=== PATIENT | female | born 1990 | race Caucasian/White ===

== ENCOUNTER 2017-09-12 11:10 | Emergency (ER) | payer MEDICAID, SELFPAY ==
[2017-09-12 11:11] VITALS: BP 166/108; PULSE 114; RESP 16; TEMP 36.7; O2SAT 97; BMI 58.2
--- NOTE | 2017-09-12 11:24 | RAD_ITS ---
STUDY: X-RAY CHEST REASON FOR EXAM: Female, 27 years old. Cough. TECHNIQUE: PA and lateral views of the chest. COMPARISON: None. FINDINGS: The lungs are expanded. There is perihilar interstitial thickening and prominence of the central bronchovascular markings. There is no demonstrated pleural abnormality. Normal size heart. Normal mediastinum and heath. There is prominence of the pulmonary hilar arteries with peripheral pulmonary vascular congestion. Normal visualized aortic arch and descending thoracic aorta. Normal visualized thoracic spine. Normal visualized ribs, clavicles, and shoulders. There is no demonstrated abnormality of the visualized soft tissue structures of the upper abdomen. RAD/Chest PA and Lateral IMPRESSION: 1. Mild pulmonary congestion. 2. Differential considerations include acute exacerbation of reactive airway disease, viral infection or mycoplasma pneumonitis. Electronically Signed: aKtelin Barron MD at 12:01 EST , Service support ,
[2017-09-12] MEDS: Naproxen 500 MG Tablet PO (11:37)
--- NOTE | 2017-09-12 12:07 | ED.VISSUMM ---
- ER Visit Summary Date of Service: 09/12/17 Chief Complaint: Head and chest congestion History of Present Illness: The patient is a 27 F who woke on the second with head and chest congestion. She has cough without sputum. She states she feels hot and cold but has not measured a fever. She complains of generalized body aches. She states her boss told her to come in to be evaluated. Physical Examination: Blood pressure is 166/108, temperature 98.0, heart rate 114, respiratory rate 16, pulse ox 97% on room air. Patient is an obese female sitting upright in bed. She is in no acute distress. She appears ill but not toxic. Head neck examination reveals left TM to be erythematous, right TM to be clear. Posterior pharynx examination is unremarkable. Heart is regular rate and rhythm. Lung sounds are grossly clear. Abdomen is soft, obese, nontender. No skin lesions or rash are noted. Test Results: Two-view chest x-ray reveals mild pulmonary congestion. Emergency Department Course and Treatment: Patient was treated with naproxen here. Should be covered with Augmentin for her ear. I did explain to her that her symptoms are likely all viral in nature and simply need to run their course. She will be written for naproxen at home. She is encouraged to continue taking Mucinex. She is written off work today and tomorrow. Treatment Plan: [] Disposition: Discharge Impression: 1. Viral syndrome 2. Left otitis media This note was generated with [employer] dictation software. It may contain incorrect words, spelling, and punctuation that were not noted in review of the chart prior to signing ED Disposition - Plan for ED Patient: Chief Complaint: Cold Sx Referrals: Monica Caba NP-C [Primary Care Provider] -
--- NOTE | 2017-09-12 12:09 | ED.DEP ---
ED Disposition - Plan for ED Patient: Disposition: Home or Assisted Living Chief Complaint: Cold Sx Instructions: ED Viral Syndrome, ED Otitis Media Acute Adult Prescriptions: Amox/Clavulanate Tablet [Augmentin Tablet] 875 mg PO Q12H #20 tablet Naproxen [Naprosyn] 500 mg PO BID PRN #20 tablet Referrals: Monica Caba, GALVANIZER ZINC-C [Primary Care Provider] - 1 Week if not improving
[2017-09-12 12:21] VITALS: BP 135/80; PULSE 101; RESP 14; O2SAT 98
[2017-09-12] MEDS: Amox/Clavulanate 875 MG Tablet PO (12:22)
== END 2017-09-12 12:22 | disposition home or self-care (01) ==
PROVIDERS: Emergency Provider Emergency Medicine; Family Provider Nurse Practitioner Family; PCP Nurse Practitioner Family
DX: B34.9 Viral infection, unspecified (principal); H66.92 Otitis media, unspecified, left ear; E66.9 Obesity, unspecified; I10 Essential (primary) hypertension; Z72.0 Tobacco use
CPT/HCPCS: 71046; 99283

== ENCOUNTER → 2017-09-17 09:14 | Outpatient (CLI) | payer MEDICAID, SELFPAY ==
[2017-09-12 11:11] VITALS: BMI 58.2
[2017-09-12 12:21] VITALS: BP 135/80
[2017-09-17 12:17] LABS: AST(SGOT) 17 U/L (15-37); Alanine Aminotransfer ALT/SGPT 27 U/L (13-56); Albumin, Serum 3.4 g/dL (3.2-5.0); Alkaline Phosphatase 85 U/L (45-117); Bilirubin, Direct < 0.05 mg/dL (0.00-0.30); Cholesterol 199 mg/dL (200); Estradiol 42.5 pg/mL; Globulin 4.4 g/dL (2.2-4.2); Glucose 98 mg/dL (74-106); High Density Lipoprotein 34 mg/dL; Prolactin 10.9 ng/mL; Protein, Total 7.8 g/dL (6.4-8.2); Triglycerides 117 mg/dL; Very Low Density Lipoprotein 23 mg/dL (5-40)
[2017-09-17 12:27] LABS: Insulin 80.6 mU/L (2.6-37.6); Vitamin D,25 Hydroxy 6.9 ng/mL (19.95-100.01)
[2017-09-17 13:18] LABS: Hemoglobin A1c 6.1 % (4.2-6.3)
[2017-09-18 10:45] LABS: DHEA Sulfate 244.6 ug/dL (84.8-378.0)
[2017-09-21 14:40] LABS: 17-Hydroxyprogesterone 66 ng/dL (.)
== END ==
PROVIDERS: Visit Provider Obstetrics & Gynecology
DX: E28.2 Polycystic ovarian syndrome (principal); N91.4 Secondary oligomenorrhea; I10 Essential (primary) hypertension
CPT/HCPCS: 36415; 80061; 80076; 82306; 82533; 82627; 82670; 82947; 83036; 83498; 83525; 84146; 84403; 82626

== ENCOUNTER → 2017-10-06 13:17 | Outpatient (CLI) | payer MEDICAID, SELFPAY ==
--- NOTE | 2017-10-06 13:21 | EKG12_ITS ---
Test Reason : ARRYTHMIA Blood Pressure : / mmHG Vent. Rate : 108 BPM Atrial Rate : 108 BPM P-R Int : 198 ms QRS Dur : 092 ms QT Int : 326 ms P-R-T Axes : 037 045 018 degrees QTc Int : 436 ms Sinus tachycardia Otherwise normal ECG Confirmed by MAKAYLA CRUZ, ESTHER ([id number]), field map editor SUSAN SEWELL ([id number]) on 10/07/2017 12:59:19 PM Referred By: Monica Caba Confirmed By:ESTHER BENAVIDES MD
== END ==
PROVIDERS: Family Provider Nurse Practitioner Family; PCP Nurse Practitioner Family; Visit Provider Nurse Practitioner Family
DX: R00.2 Palpitations (principal); R07.89 Other chest pain; R06.02 Shortness of breath
CPT/HCPCS: 93005; 93225; 93226

== ENCOUNTER → 2017-10-20 07:02 | Outpatient (CLI) | payer MEDICAID, SELFPAY ==
--- NOTE | 2017-10-20 07:07 | ECHOCS_ITS ---
Reason For Study: SOB Procedure This was a 2D Doppler, Color Flow transthoracic echocardiogram. The study was technically difficult. Due to body habitus. Contrast injection was performed. Exam performed in department. Left Ventricle Normal size and thickness. The estimated ejection fraction is 65 %. Normal diastology for age. No regional wall motion abnormalities noted. Right Ventricle Normal size and thickness. Normal systolic function. Atria Normal left atrium. Normal right atrium. Normal atrial septum. Mitral Valve The mitral valve is structurally normal. No prolapse or stenosis seen. Tricuspid Valve Normal tricuspid valve. Trivial tricuspid valve insufficiency. Right ventricular systolic pressure estimated to be 18 mmHg. Aortic Valve Trisinus/trileaflet aortic valve. Pulmonic Valve The pulmonic valve is not well visualized. Great Vessels Normal aortic root. Normal arch. Normal inferior vena cava. Inferior vena cava collapse with sniff. Pericardium/Pleural No pericardial effusion. Medication Diluted definity 2.5ml given slow IV push to enhance endocardial definition. MMode/2D Measurements & Calculations LVIDd: 4.4 cm IVSd: 1.2 cm Ao root diam: 3.3 cm LVIDs: 3.2 cm LVPWd: 1.2 cm LA dimension: 4.5 cm RVDd: 3.0 cm FS: 28.2 % LAV(MOD-bp): 42.6 ml LA A4 area: 15.8 cm2 LAV(MOD-bp) Indexed: 16.2 ml/m2 LAV(MOD-sp2): 40.4 ml LAV(MOD-sp4): 44.1 ml Time Measurements MV dec time: 0.16 sec Doppler Measurements & Calculations MV E max darío: 66.4 cm/sec Lat Peak E' Darío: 9.7 cm/sec Med Peak E' Darío: 9.9 cm/sec MV A max darío: 52.8 cm/sec E/E' lat: 6.8 E/E' med: 6.7 MV E/A: 1.3 Ao V2 max: 115.3 cm/sec LV V1 max: 94.5 cm/sec PA V2 max: 86.2 cm/sec Ao max P.3 mmHg LV V1 max P.6 mmHg TR max darío: 178.0 cm/sec TR max P.7 mmHg Interpretation Summary The estimated ejection fraction is 65 %. Normal diastology for age. Trivial tricuspid valve insufficiency. Right ventricular systolic pressure estimated to be 18 mmHg. The study was technically difficult. Contrast injection was performed. There is no comparison study available. Ordering Physician: Monica Caba Referring Physician: Monica Caba POWERHOUSE ELECTRICIAN-C Performed By: Danay Goddard RDCS, RVT
--- NOTE | 2017-10-20 10:34 | STRESSREP ---
Stress Test Report Exercise myocardial perfusion stress test. 27-year-old lady with a history of shortness of breath. Medications metoprolol hydrochlorothiazide metformin. Stress protocol: Resting EKG demonstrates sinus tachycardia with a rate of 114 bpm. Resting blood pressure is 120/78 mmHg. The patient exercised according to the regular Steven protocol for total duration of 3 minutes. The maximum heart rate was 160 bpm which was 83% of maximum predicted heart rate. The maximum workload attained was 4.6 metabolic equivalents. At rest there were no ST or T-wave changes noted suggest ischemia at peak exercise no ST or T-wave changes were noted suggest ischemia. Resting blood pressure is 120/78 mmHg the peak blood pressure is 172/74 mmHg. Rate pressure product was 27,000. The test was terminated due to shortness of breath. Myocardial perfusion protocol. 15.0 mCi of technetium 99m sestamibi was injected at rest. The patient exercised according to regular Steven protocol for 3 minutes and at peak exercise 44.8 mCi of technetium 99 sestamibi was injected stress images were obtained stress and rest images were reconstructed and compared in the short axis vertical long horizontal long axis. Gated images were also obtained pre- Perfusion SPECT analysis: Review of the stress images demonstrate mild anterior reduction of perfusion present on the stress and resting images to a similar extent of the above is likely secondary to breast attenuation artifact. No obvious ischemia is noted no infarct is present. Gated SPECT analysis. The gated ejection fraction is noted was 66%. Conclusion: Exercise myocardial perfusion stress test with no evidence of ischemia noted at a low workload. The low level of activity may affect sensitivity for detection of ischemia. No obvious ischemia noted. Preserved ejection fraction.
== END ==
PROVIDERS: Family Provider Nurse Practitioner Family; PCP Nurse Practitioner Family; Visit Provider Nurse Practitioner Family
DX: R00.2 Palpitations (principal); R06.02 Shortness of breath; R07.89 Other chest pain
CPT/HCPCS: 78452; 93017; 93306; A9500; Q9957; A4216; C8929

== ENCOUNTER 2018-02-16 15:43 | Emergency (ER) | payer MEDICAID, SELFPAY ==
[2018-02-16 15:43] VITALS: BP 142/80; PULSE 124; RESP 22; TEMP 36.8; O2SAT 94; BMI 57.2
--- NOTE | 2018-02-16 16:35 | ED.RN ---
pt tearful and upset regarding . pt states i jsut want to go home. i dont want to get checked out. This nurse attempted to talk with pt pt rapidly grabbed belongings and walked out room, unit, hospital and down sidewalk. unable to talk with pt ay further as she left. pt didnt wan to hear anything anyone was trying to say. including friend/family. no looking/turning back
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
--- NOTE | 2018-02-16 16:55 | ED.RN ---
FAMILY RETURNED TO UNIT UNABLE TO TALK WITH PT AND PT NOT RETURNING. LEFT AMA, UNABLE TO GET PT SIGNATURE FOR AMA FORM.
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
== END 2018-02-16 16:56 | disposition left against medical advice (07) ==
PROVIDERS: Emergency Provider Emergency Medicine; Family Provider Nurse Practitioner Family; PCP Nurse Practitioner Family
DX: S00.91XA Abrasion of unspecified part of head, initial encounter (principal); M25.511 Pain in right shoulder; M79.641 Pain in right hand; M25.521 Pain in right elbow; V47.6XXA Car passenger injured in collision with fixed or stationary object in traffic accident, initial encounter; Y93.89 Activity, other specified; Y92.488 Other paved roadways as the place of occurrence of the external cause; Y99.9 Unspecified external cause status; I10 Essential (primary) hypertension; J45.909 Unspecified asthma, uncomplicated; Z72.0 Tobacco use
CPT/HCPCS: 99281